=== PATIENT | female | born 1985 | race African-American/Black ===

== ENCOUNTER 2018-12-05 04:38 | Emergency (ER) | payer SELFPAY ==
[~2018-12-05] VITALS: Ht 167.6 cm; Wt 59.0 kg
[2018-12-05 05:00] VITALS: BP 144/93
[2018-12-05] MEDS ORDERED: SODIUM CHLORIDE 0.9% 1,000 ML IV ONE (05:21)
[2018-12-05] MEDS ORDERED: ONDANSETRON HCL 4MG/2ML INJ IV STA (05:21)
[2018-12-05 05:38] LABS: BASOPHILS % 0.3 % (0.0-2.0); EOSINOPHILS % 0.3 % (0.0-5.0); HEMATOCRIT. 45.9 % (36.0-48.0); HEMOGLOBIN. 15.6 g/dL (12.0-16.0); LYMPHOCYTES % 40.9 % (20.0-50.0); MEAN CORPUSCULAR HEMOGLOBIN 31.7 pg (28.0-32.0); MEAN CORPUSCULAR VOLUME 93.5 fL (81.0-99.0); MEAN PLATELET VOLUME 8.8 fl (7.4-10.4); MONOCYTES % 7.5 % (2.0-8.0); PLATELET 234 x1000/uL (130-400); RED BLOOD CELL COUNT 4.91 mill/uL (4.2-5.4); RED CELL DISTRIBUTION WIDTH 12.9 % (11.6-14.6)
[2018-12-05 05:44] LABS: CHLORIDE 109 mEq/L (98-107)
[2018-12-05 05:48] LABS: ETHANOL BLOOD 257 mg/dL
== END 2018-12-05 06:56 | disposition home or self-care (01) ==
LOC: ER 04:38
DX: R00.0 Tachycardia, unspecified (principal); R41.82 Altered mental status, unspecified
CPT/HCPCS: 36415; 80053; 80307; 80320; 80329; 82140; 83690; 84484; 85025; 96361; 96374; 99283; J2405; J7030; Z7610; G0480